=== PATIENT | male | born 1990 | race Hispanic/Latino ===

== ENCOUNTER 2018-01-08 23:35 | Emergency (ER) | payer MEDICAID | END 2018-01-09 00:58 | disposition home or self-care (01) | LOC: EDH 23:35 | DX: R07.89 Other chest pain (principal); Z72.0 Tobacco use; V89.2XXA Person injured in unspecified motor-vehicle accident, traffic, initial encounter; Y93.89 Activity, other specified; Y92.89 Other specified places as the place of occurrence of the external cause; Y99.8 Other external cause status | CPT/HCPCS: 70450; 71045; 93005 ==

== ENCOUNTER 2019-03-04 20:03 | Observation (INO) | payer MEDICAID ==
[~2019-03-04] VITALS: Ht 170.2 cm; Wt 78.5 kg
[2019-03-04] MEDS: SODIUM CHLORIDE 0.9% 1000ML 1,000 ML IV SCH (01:40)
[2019-03-04 21:14] LABS: BASOPHILS % (AUTO) 0.5 % (0.0-5.0); EOSINOPHILS % (AUTO) 0.5 % (0.0-8.0); HEMATOCRIT 41.4 % (42-54); LYMPHOCYTES % (AUTO) 13.1 % (21.0-51.0); MEAN CORPUSCULAR HEMOGLOBIN 32.4 pg (27.0-33.0); MEAN CORPUSCULAR HGB CONC 34.4 g/dL (32.0-36.0); MEAN CORPUSCULAR VOLUME 94.1 fL (79-99); MONOCYTES % (AUTO) 12.1 % (3.0-13.0); NEUTROPHILS % (AUTO) 73.8 % (40.0-77.0); NUCLEATED RED BLOOD CELLS 0.1 % (0.0-0.19); PLATELET COUNT (AUTO) 182 K/uL (130-400); RED CELL DISTRIBUTION WIDTH 13.2 % (11.0-15.5); WHITE BLOOD COUNT (AUTO) 13.3 K/uL (4.8-10.8)
[2019-03-04] MEDS ORDERED: SODIUM CHLORIDE 0.9% 1000ML 1,000 ML IV ONE ×2 (21:15→23:15)
[2019-03-04 21:16] LABS: APPEARANCE,URINE Clear (CLEAR); BILIRUBIN,URINE Negative (NEGATIVE); COLOR,URINE Yellow (YELLOW); GLUCOSE, URINE (UA) Negative (NEGATIVE); KETONES,URINE Negative (NEGATIVE); LEUKOCYTE ESTERASE ,URINE Negative (NEGATIVE); NITRATE,URINE Negative (NEGATIVE); OCCULT BLOOD,URINE Negative (NEGATIVE); PH,URINE 5.5 (5.0-8.0); PROTEIN,URINE Negative (NEGATIVE)
[2019-03-04] MEDS ORDERED: KETOROLAC TROMETHAMINE 30MG/ML ONE (21:17)
[2019-03-04] MEDS ORDERED: ONDANSETRON HCL 4 MG/2 ML VIAL ONE (21:17)
[2019-03-04 21:24] LABS: AMPHET/METH SCREEN,URINE NEGATIVE (NEGATIVE); BARBITURATE SCREEN, URINE NEGATIVE (NEGATIVE); BENZODIAZEPINES SCREEN,URINE NEGATIVE (NEGATIVE); CANNABINOID SCREEN,URINE POSITIVE (NEGATIVE); COCAINE SCREEN,URINE NEGATIVE (NEGATIVE); OPIATE SCREEN,URINE NEGATIVE (NEGATIVE); PHENCYCLIDINE SCREEN,URINE NEGATIVE (NEGATIVE)
[2019-03-04 21:28] LABS: POTASSIUM 3.3 mmol/L (3.5-5.1)
[2019-03-04 21:32] LABS: ALBUMIN 3.3 g/dL (3.5-5.0); BILIRUBIN,TOTAL 0.2 mg/dL (0.2-1.0); TOTAL PROTEIN, SERUM 6.8 g/dL (6.0-8.3)
[2019-03-04] MEDS ORDERED: IOHEXOL-350 75 ML VIAL IV ONE (21:42)
[2019-03-04] MEDS ORDERED: ZOSYN 3.375GM+NS 50ML 50 ML IV ONE (22:40)
[2019-03-04] MEDS ORDERED: MORPHINE SULFATE 4 MG/1ML SYG ONE (22:40)
[2019-03-04] MEDS ORDERED: MORPHINE SULFATE 4 MG/1ML SYG IVP PRN (23:45)
[2019-03-04] MEDS ORDERED: ONDANSETRON HCL 4 MG/2 ML VIAL IVP PRN (23:45)
[2019-03-05] VITALS (27 sets, daily range): BP systolic 104–141; BP diastolic 62–93
--- NOTE | 2019-03-05 03:34 | NUR ---
PATIENT UPDATE 28 YR OLD MALE ADMITTED FOR ACUTE APPENDICITIS,GOING FOR LAP APPE OR OPEN APPE WITH DR. LORENZANA THIS AM. NPO POST MN, PT SLEEPY, WAS JUST MEDICATED FOR PAIN BEFORE TRANSFER TO THE FLOOR. CONSENT SECURED,HYDRATION AND IV ANTIBIOTICS STARTED. NO COMPLAINTS OF PAIN RIGHT NOW.
[2019-03-05] MEDS ORDERED: ZOSYN 3.375GM+NS 50ML 50 ML IV ONE (04:49)
[2019-03-05] MEDS ORDERED: ZOSYN 3.375GM+NS 50ML 50 ML IV SCH (06:00)
[2019-03-05 06:05] LABS: HEMATOCRIT 39.3 % (42-54); MEAN CORPUSCULAR HEMOGLOBIN 32.5 pg (27.0-33.0); MEAN CORPUSCULAR HGB CONC 34.6 g/dL (32.0-36.0); MEAN CORPUSCULAR VOLUME 93.9 fL (79-99); PLATELET COUNT (AUTO) 175 K/uL (130-400); RED BLOOD CELL COUNT(AUTO) 4.19 MIL/uL (4.50-6.20); RED CELL DISTRIBUTION WIDTH 13.5 % (11.0-15.5)
[2019-03-05 06:22] LABS: CREATININE 0.9 mg/dL (0.5-1.5); POTASSIUM 3.3 mmol/L (3.5-5.1)
[2019-03-05] MEDS ORDERED: MIDAZOLAM HCL 1 MG/ML 2ML VIAL ONE (08:57)
[2019-03-05] MEDS ORDERED: FENTANYL CITRATE PF 50 MCG/1 ML 5ML AMP IV ONE (08:57)
[2019-03-05] MEDS: SODIUM CHLORIDE 0.9% 1000ML 1,000 ML IV SCH (09:45)
[2019-03-05] MEDS ORDERED: BUPIVACAINE/PF 0.5% 30ML VIAL ONE (09:50)
[2019-03-05] MEDS: LACTATED RINGERS 1000ML 1,000 ML IV SCH (12:37)
[2019-03-05] MEDS ORDERED: MORPHINE SULFATE 4 MG/1ML SYG IV PRN (12:45)
[2019-03-05] MEDS ORDERED: ONDANSETRON HCL 4 MG/2 ML VIAL IVP PRN (12:45)
[2019-03-05] MEDS ORDERED: MEPERIDINE-PF 25 MG/ML SYG ONE ×2 (12:59→13:14)
[2019-03-05] MEDS ORDERED: PROPOFOL 10 MG/ML 20ML VIAL IV ONE ×2 (13:00→13:01)
[2019-03-05] MEDS: ZOSYN 3.375GM+NS 50ML 50 ML IV SCH ×3 (14:15→22:05)
[2019-03-05] MEDS: ACETAMINOPHEN-CODEINE 300/30MG TAB PO PRN (15:53)
[2019-03-05] MEDS ORDERED: TAMS-1 PO (19:54)
[2019-03-05] MEDS ORDERED: DICY10CA13 PO (19:54)
[2019-03-05] MEDS ORDERED: IBUP-2077 PO (19:54)
[2019-03-05] MEDS ORDERED: ONDA8TAB12 PO (19:54)
[2019-03-05] MEDS ORDERED: CIPR-278 PO (19:54)
[2019-03-06 00:20] VITALS: BP 126/64
[2019-03-06] MEDS: ACETAMINOPHEN-CODEINE 300/30MG TAB PO PRN ×3 (00:38→12:56)
[2019-03-06 04:28] VITALS: BP 114/71
[2019-03-06] MEDS: ZOSYN 3.375GM+NS 50ML 50 ML IV SCH (05:21)
[2019-03-06] MEDS: LACTATED RINGERS 1000ML 1,000 ML IV SCH (05:21)
[2019-03-06 06:22] LABS: BASOPHILS % (AUTO) 0.6 % (0.0-5.0); HEMATOCRIT 39.1 % (42-54); LYMPHOCYTES % (AUTO) 15.4 % (21.0-51.0); MEAN CORPUSCULAR HEMOGLOBIN 31.9 pg (27.0-33.0); MEAN CORPUSCULAR HGB CONC 34.1 g/dL (32.0-36.0); MEAN CORPUSCULAR VOLUME 93.6 fL (79-99); MONOCYTES % (AUTO) 8.7 % (3.0-13.0); NEUTROPHILS % (AUTO) 75.3 % (40.0-77.0); PLATELET COUNT (AUTO) 209 K/uL (130-400); RED BLOOD CELL COUNT(AUTO) 4.18 MIL/uL (4.50-6.20); RED CELL DISTRIBUTION WIDTH 13.3 % (11.0-15.5); WHITE BLOOD COUNT (AUTO) 12.4 K/uL (4.8-10.8)
[2019-03-06 07:13] LABS: CREATININE 0.8 mg/dL (0.5-1.5); POTASSIUM 3.9 mmol/L (3.5-5.1)
[2019-03-06] MEDS ORDERED: SUCCINYLCHOLINE 200MG/10ML SYR ONE (07:52)
[2019-03-06 11:00] VITALS: BP 143/77
--- NOTE | 2019-03-06 16:43 | NUR ---
DRESSING CHANGED TO INCISION AREAS ,NO SIGNS OF BLEED OR INFECTION .[facility] INTACT. DISCHARGE INSTRUCTION PROVIDED TO PATIENT ALONG WITH PRESCRIPTION FOR TYLENOL 3 . INSTRUCTED PATIENT ON MD ORDERS ON RESTRICTIONS AND NOT CLEARED TO GO BACK TO WORK . PATIENT VERBILIZED UNDERSTANDING
== END 2019-03-06 17:27 | disposition home or self-care (01) ==
LOC: EDH 20:03 → EDHIP 20:04 → 3DH 03-05 01:42
PROVIDERS: ADMIT Student in an Organized Health Care Education/Training Program; ATTEND Student in an Organized Health Care Education/Training Program
DX: K35.80 Unspecified acute appendicitis (principal); R11.2 Nausea with vomiting, unspecified; F17.200 Nicotine dependence, unspecified, uncomplicated; Z82.49 Family history of ischemic heart disease and other diseases of the circulatory system; Z82.5 Family history of asthma and other chronic lower respiratory diseases; Z79.899 Other long term (current) drug therapy
CPT/HCPCS: 36415 ×3; 44970; 74177; 80048 ×2; 80053; 80305; 81003; 83690; 85025 ×2; 85027; 96361 ×2; 96365; 96366 ×2; 96375; 99284; A4649 ×7; A4930; A6206; A6207; C1769 ×3; G0378 ×42; J0330; J1885; J2175 ×2; J2250; J2270 ×2; J2405; J2543 ×6; J2704 ×2; J3010; J3490; J7030 ×4; J7120 ×2; Q9967